=== PATIENT | female | born 1970 | race Caucasian/White ===

== ENCOUNTER 2022-08-15 06:10 | Day surgery (SDC) | payer OTHER ==
[2022-08-15] MEDS ORDERED: Lactated Ringers 1,000 ML IV ONE (06:37)
[2022-08-15] MEDS ORDERED: Lactated Ringers 1,000 ML IV SCH (07:00)
[2022-08-15] MEDS ORDERED: DIPRIVAN 200 MG/20 ML IV ONE ×2 (07:45→08:01)
[2022-08-15] MEDS ORDERED: Versed 2 MG/2 ML Injection ONE (07:45)
--- NOTE | 2022-08-15 08:52 | OP ---
SURGERY DATE/TIME: 08/15/2022 0751 PREOPERATIVE DIAGNOSIS: Screening exam. POSTOPERATIVE DIAGNOSIS: Small polyp in the transverse colon. PROCEDURE: Colonoscopy with cold forceps biopsy. SURGEON: Dr. Modi. ANESTHESIA: MAC. Medications given by anesthesia department. HISTORY: The patient is a 51-year-old white female presenting now for screening colonoscopy. The patient was described the risks of the procedure including the risk of perforation, phlebitis, untoward reaction to medication, bleeding and missed lesions. The patient verbalized her understanding and desired to have the procedure performed. DESCRIPTION OF PROCEDURE: The patient was given the medications by the anesthesia department. She had continuous pulse oximetry, ECG monitoring and intermittent blood pressure monitoring during the examination. She was placed in the left lateral decubitus position. A digital rectal examination was performed and revealed normal anal sphincter tone and no masses. The flexible Olympus pediatric colonoscope was used to intubate the rectum. A view of the colon was developed sequentially to the cecum. Upon insertion and withdrawal was noted a small sessile polyp appearing lesion that was approximately 1 cm in size which was biopsied in two areas to determine the nature of the lesion. Otherwise, there were no other mucosal lesions encountered. The scope was removed from the patient who tolerated the procedure well and was sent back to OP recovery in good condition. The prep was noted to be fair to good.
[2022-08-15 09:03] VITALS: BP 147/77; PULSE 62; O2SAT 99
== END 2022-08-15 09:10 | disposition home or self-care (01) ==
LOC: SDC 06:10
PROVIDERS: ATTEND Family Medicine
DX: Z12.11 Encounter for screening for malignant neoplasm of colon (principal); K63.5 Polyp of colon; E11.9 Type 2 diabetes mellitus without complications
CPT/HCPCS: 82947; J2250; J2704